=== PATIENT | female | born 1985 | race African-American/Black ===

== ENCOUNTER 2025-07-09 10:22 | Emergency (ER) | payer MEDICAID ==
[~2025-07-09] VITALS: Ht 157.5 cm; Wt 85.0 kg
[2025-07-09 10:26] VITALS: PULSE 96; RESP 18; O2SAT 100
[2025-07-09 10:30] VITALS: BP 141/90; TEMP 37.1; O2SAT 99
[2025-07-09] MEDS ORDERED: ISOP30DR11 OT (11:01)
== END 2025-07-09 11:07 | disposition home or self-care (01) ==
LOC: ER 10:22
DX: H61.23 Impacted cerumen, bilateral (principal); R42 Dizziness and giddiness; Z98.890 Other specified postprocedural states
CPT/HCPCS: 99282